=== PATIENT | female | born 1985 | race Caucasian/White ===

== ENCOUNTER 2016-05-13 09:51 | Emergency (ER) | payer OTHER ==
[~2016-05-13] VITALS: Ht 170.2 cm; Wt 49.5 kg
[2016-05-13 10:02] VITALS: BP 107/63; PULSE 89; RESP 14; O2SAT 100
--- NOTE | 2016-05-13 10:02 | ED.REPORT ---
HPI-Abd Pain F Under 40 Date of Service May 13, 2016 ED Provider: Dr. Brandon Chicas M.D. A healthy 30 year old female, and at 5.5 weeks, presents to the ED with vaginal bleeding onset this morning. She also reports lower abdominal pain, characterized as more similar to labor pain than menstrual cramping. Her last menstrual period started on 04/04/16. She denies vomiting or fever. The patient knows her Rh status to be negative. She has had similar symptoms with previous miscarriages. Nursing Notes Stated Complaint: LOWER ABDOMINAL PAIN Chief Complaint: Female Abdominal Pain Nursing Notes Reviewed: Yes Allergies: Coded Allergies: No Known Allergies (Unverified , 05/13/16) Scheduled Nitrofurantoin Monohyd/M-Cryst (MacroBid) 100 Mg Capsule 100 MG PO BID Scheduled PRN Hydrocodone-Acetaminophen 5-325 mg (Hydrocodone-Acetaminophen 5-325 mg) 1 Each Tablet 1 TABLET PO Q4H PRN PRN For Pain General Time Seen by MD: 10:02 Chief Complaint , 1st trimester, Vaginal bleeding Hx Obtained From: Patient Arrived By: Walk-in Sudden in Onset?: Yes Onset Occurred: 1 - 4 hours ago Symptom Duration: Since onset Progression since Onset: Gradually worsening Location: : Abdomen lower Quality: Painful Severity: Current: Moderate Severity: Maximum: Moderate Associated with: Denies: Fever, Vomiting Status: Last NL menst cycle (04/04/16), Positive - home urine HCG : 5 Para: 2 RH Status / Blood Type: Rh Negative Pertinent Negative: Relieved by nothing Context Related History: Reports: Current Recent Healthcare: No recent doctor visit Similar Sx Previous: Yes Past Medical History Past Medical History - 05/13/2016 Past Surgical History Dental surgery Smoking History Never Smoker Social History Other Social History: Lives with children Ambulatory Status Independent Review of Systems Constitutional: Denies: Fever Respiratory: Denies: Non-productive cough, Shortness of breath GI: Reports: Abdominal pain (Lower), Denies: Vomiting Female: Reports: Vaginal bleeding - abnl () Complete sys rev & neg: except as marked. Physical Exam Initial Vital Signs Vital Signs (First) Date Time Temp Pulse Resp B/P Pulse Ox O2 Delivery O2 Flow Rate FiO2 05/13/16 10:02 36.9 89 14 107/63 100 Room Air Initial VS: Reviewed Head / Eyes: Atraumatic, Normocephalic ENT: Conjunctiva normal, No scleral icterus Neck: Supple, Full range of motion Skin: Warm, Dry, No cyanosis Neurologic: Alert, Oriented, Nonfocal Psychiatric: Mood/affect normal, Behavior normal, Normal thought content General/Constitutional: Awake, Alert, No acute distress Respiratory / Chest: Breath sounds NL, Breath sounds = bilat, No respiratory distress Cardiovascular: Heart rate NL, Regular rhythm, Heart sounds NL Abdomen: Soft, Non-tender Back: Full range of motion Interpretation & Diagnostics Interpretation & Diagnostics: Rh negative per patient Lab Results Interpretation Result Diagram: 05/13/16 1015 05/13/16 1015 Test 05/13/16 10:15 05/13/16 10:38 White Blood Count 5.8th/mm3 (3.8-10.1) Red Blood Count 3.95mil/mm3 (3.90-5.20) Hemoglobin 12.1g/dL (12.0-15.6) Hematocrit 36.3% (35.0-46.0) Mean Corpuscular Volume 91.9fL (81-100) Mean Corpuscular Hemoglobin 30.6pg (27.0-35.0) Mean Corpuscular Hemoglobin Concent 33.3% (32.0-37.0) Red Cell Distribution Width 12.5% (12.3-15.4) Platelet Count 210bil/L (150-400) Neutrophils (%) (Auto) 71.1% (40-74) Lymphocytes (%) (Auto) 19.7% (14-46) Monocytes (%) (Auto) 7.3% (4-12) Eosinophils (%) (Auto) 1.4% (0-5) Basophils (%) (Auto) 0.3% (0-3) Sodium Level 142mEq/L (134-144) Potassium Level 3.8mEq/L (3.5-5.2) Chloride Level 105mEq/L (97-108) Carbon Dioxide Level 24mmol/L (18-29) Blood Urea Nitrogen 12mg/dL (6-20) Creatinine 0.58mg/dL (0.57-1.00) Estimat Glomerular Filtration Rate 173mL/min (>59) Glucose Level 75mg/dL (60-99) Calcium Level 8.7mg/dL (8.5-10.1) Total Bilirubin 0.3mg/dL (0.0-1.2) Direct Bilirubin 0.2mg/dL (0.0-0.3) Aspartate Amino Transf (AST/SGOT) 16U/L (0-50) Alanine Aminotransferase (ALT/SGPT) 12U/L (0-32) Alkaline Phosphatase 53U/L (25-150) Total Protein 6.9g/dL (6.4-8.4) Albumin 4.5g/dL (3.4-5.0) HCG Beta Subunit 1699mIU/mL Urine Color Straw (YELLOW) Urine Appearance Hazy (CLEAR,HAZY) Urine pH 6.0 (5.0-8.0) Urine Specific [place] 1.025 (1.003-1.035) Urine Protein Negativemg/dL (NEG,TRACE) Urine Glucose (UA) Negativemg/dL (NEGATIVE) Urine Ketones Negativemg/dL (NEGATIVE) Urine Occult Blood Moderate (NEGATIVE) Urine Nitrite Negative (NEGATIVE) Urine Bilirubin Negative (NEGATIVE) Urine Urobilinogen Normalmg/dL (NORMAL) Urine Leukocyte Esterase Small (NEGATIVE) Urine RBC 0-2/hpf (0-2) Urine WBC 11-50/hpf (0-5) Urine Epithelial Cells Few/hpf (NONE-MOD) Urine Crystals None seen (NONE SEEN) Urine Bacteria Moderate/hpf (NONE-FEW) Urine Hyaline Casts None/lpf (NONE) Urine Granular Casts None seen (NONE SEEN) Urine Waxy Casts None seen (NONE SEEN) Urine Red Blood Cell Casts None seen (NONE SEEN) Urine White Blood Cell Casts None seen (NONE SEEN) Urine Mucus Present (None Seen) Urine Trichomonas None seen (NONE SEEN) Urine Yeast None (NONE SEEN) Urinalysis Comment None Urine Culture Reflexed Indicated US Focused OB IMPRESSION: The saclike structure within the endometrial space may represent a "gestational sac" in this circumstance given the absence of a visualized yolk sac within. At the right adnexa there is a structure that may contain a central yolk sac, worrisome for ectopic . A 2.7 cm left ovarian cyst appears simple. Within the peritoneal space no current evidence of hemoperitoneum is found. Correlation with quantitative beta hCG is recommended to assist in determining whether a current intrauterine gestation should be seen. A high suspicion for ectopic of the right adnexa remains. It is not definitive, however, by this study. This information was conveyed to the ordering health care provider in the emergency room. Dictated by: Alexander Gramajo M.D. on 05/13/2016 at 14:31 Exam Performed by: Allied health pract Exam Interpreted by: Radiologist Re-Eval/Medical Decision Re-Evaluation/Progress #1: Time of Eval: 13:04 Patient Status: Condition improved Re-Evaluation/Progress Note: Discussed with patient US results and diagnosis. Re-Evaluation/Progress #2: Time of Eval: 13:30 Patient Status: Condition improved Re-Evaluation/Progress Note: Discussed lab results and plan for CHILD WATCH ATTENDANT consult. Her last meal was yesterday. Consultation #1: Referral / Consult Name: Saturnino Casillas MD Call Returned at: 13:26 Acrobatic Dancer: Will see patient, Agrees with eval, Agrees with plan Note: CHILD WATCH ATTENDANT: Will see patient at 17:00 Consultation #2: Referral / Consult Name: Saturnino Casillas MD Call Returned at: 17:42 Acrobatic Dancer: Will see patient, Agrees with eval, Agrees with plan Note: CHILD WATCH ATTENDANT: Dr. Casillas saw the patient, decided on plan for methotrexate and subsequent discharge. Patient agrees with plan for care and all questions were addressed. Dr. Casillas has arranged for outpatient follow-up for the patient and his spent a lengthy amount of time at the bedside with the patient. See his documentation. Counseled Regarding: Diagnosis, Lab results, Need for follow-up, When/why to return to ED Discharge & Departure Primary Impression: Ectopic Additional Impression: UTI (urinary tract infection) Urinary tract infection type: acute cystitis Hematuria presence: without hematuria Qualified Code: N30.00 - Acute cystitis without hematuria Disposition: Home Discharge Condition All VS Reviewed: Yes Condition: Stable Patient Instructions: Ectopic (ED), Methotrexate (Injection), Urinary Tract Infection in Women (ED) Additional Instructions: Follow-up with Dr. Casillas in the clinic on Monday. Take Macrobid twice daily for a week to treat the bladder infection you have. Return to the emergency department for increasing pain, uncontrolled bleeding, fainting or fever. Acetaminophen as needed for pain. Take hydrocodone/APAP as needed for severe pain. Referrals: Saturnino Casillas MD Scribe Attestation Portions of this note were transcribed by Rissa Viera. I, Dr. Chicas, personally performed the history, physical exam, and medical decision-making; I reviewed and confirmed the accuracy of the information in the transcribed note. Signed by: Iker Lomeli, 05/13/2016, 17:50 copies to: Saturnino Casillas MD, Kirk H MD May 13, 2016 10:02 RISSA VIERA May 13, 2016 10:20
[2016-05-13 10:34] LABS: BASOPHILS % (AUTO) 0.3 % (0-3); EOSINOPHILS % (AUTO) 1.4 % (0-5); MONOCYTES % (AUTO) 7.3 % (4-12); Mean Corpuscular Hemoglobin 30.6 pg (27.0-35.0); Mean Corpuscular Volume 91.9 fL (81-100); NEUTROPHILS % (AUTO) 71.1 % (40-74); Platelet Count 210 bil/L (150-400)
[2016-05-13 11:30] LABS: APPEARANCE,URINE HAZY (CLEAR,HAZY); COLOR,URINE STRAW (YELLOW); OCCULT BLOOD,URINE MODERATE (NEGATIVE); UROBILINOGEN,URINE NORMAL (NORMAL)
--- NOTE | 2016-05-13 14:33 | DRSVH ---
PROCEDURE: US OB<14 WKS+OB TRANSVAG INDICATIONS: cramping bleeding OUTSIDE/PRIOR DATING DATA: Last menstrual period (LMP): Not available. LMP-based estimated date of delivery (MONIQUE): Not available. First dating scan (date and location): This study, 05/13/16. Estimated date of delivery (MONIQUE) from first dating scan: 01/12/17+ or minus one week, assuming viable gestation is present. TECHNIQUE: Real-time scanning was performed of the fetus and maternal pelvic organs, with image documentation. Endovaginal scanning was also performed to better visualize the fetus and maternal ovaries. COMPARISON: None. FINDINGS: Embryo: A pole is not seen but there is a sac like structure within the endometrial space with a mean sac diameter of 4 mm, which correlates with a gestational age of 5 weeks 1 day, plus or -7 day s, assuming this represents a viable gestation. Measurement variability in dating: +/- 4 weeks by LMP, +/- 7 days by mean sac diameter (use before 6 weeks gestation if crown-rump length not able to be measured), +/- 5 days by crown-rump length (6-12 weeks gestation). Maternal organs: Ovaries are normal on the left where a cyst can be seen, measuring up to 2.7 cm. A t the right ovary, however, there is a hyperechoic structure with a central cystic component with pos sible internal yolk sac within the, but without a visualized pole. Limited images through the kidneys demonstrate no hydronephrosis. IMPRESSION: The saclike structure within the endometrial space may represent a "gestational sac" in t his circumstance given the absence of a visualized yolk sac within. At the right adnexa there is a s tructure that may contain a central yolk sac, worrisome for ectopic . A 2.7 cm left ovarian cyst appears simple. Within the peritoneal space no current evidence of hemoperitoneum is found. Correlation with quantitative beta hCG is recommended to assist in determining whether a current intr auterine gestation should be seen. A high suspicion for ectopic of the right adnexa remain s. It is not definitive, however, by this study. This information was conveyed to the ordering health care provider in the emergency room. Dictated by: Alexander Gramajo M.D. on 05/13/2016 at 14:31 Approved by: Alexander Gramajo M.D. on 05/13/2016 at 14:31
[2016-05-13] MEDS ORDERED: HYDR-4003 PO (17:33)
[2016-05-13] MEDS ORDERED: NITR100 PO (17:33)
[2016-05-13 17:43] LABS: Bilirubin, Direct 0.2 mg/dL (0.0-0.3)
[2016-05-13] MEDS ORDERED: METHOTREXATE 25 MG/ML IM ONE (18:15)
--- NOTE | 2016-05-13 18:24 | PCM.CONSUR ---
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, 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 lives in [place] Reason for Consultation ectopic Allergy Allergies: Coded Allergies: No Known Allergies (Unverified , 05/13/16) Medications Hypertension Medication: No Home Meds Incl Beta Blockers: No Hydrocodone-Acetaminophen 5-325 mg (Hydrocodone-Acetaminophen 5-325 mg) 1 Each Tablet 1 TABLET PO Q4H PRN PRN For Pain Prescribed by: PATRICK CHICAS MD Nitrofurantoin Monohyd/M-Cryst (MacroBid) 100 Mg Capsule 100 MG PO BID Prescribed by: PATRICK CHICAS MD Social History Hx Alcohol Use: No Hx Substance Use: No Hx Tobacco Use: No PMH Social History Hx Alcohol Use: No Smoking Status: Never Smoker Family History PMH Family Diagnosis: Other (nil) Objective Exam Lab & Micro Results Laboratory Tests Test 05/13/16 10:15 05/13/16 10:38 White Blood Count 5.8th/mm3 (3.8-10.1) Red Blood Count 3.95mil/mm3 (3.90-5.20) Hemoglobin 12.1g/dL (12.0-15.6) Hematocrit 36.3% (35.0-46.0) Mean Corpuscular Volume 91.9fL (81-100) Mean Corpuscular Hemoglobin 30.6pg (27.0-35.0) Mean Corpuscular Hemoglobin Concent 33.3% (32.0-37.0) Red Cell Distribution Width 12.5% (12.3-15.4) Platelet Count 210bil/L (150-400) Neutrophils (%) (Auto) 71.1% (40-74) Lymphocytes (%) (Auto) 19.7% (14-46) Monocytes (%) (Auto) 7.3% (4-12) Eosinophils (%) (Auto) 1.4% (0-5) Basophils (%) (Auto) 0.3% (0-3) Sodium Level 142mEq/L (134-144) Potassium Level 3.8mEq/L (3.5-5.2) Chloride Level 105mEq/L (97-108) Carbon Dioxide Level 24mmol/L (18-29) Blood Urea Nitrogen 12mg/dL (6-20) Creatinine 0.58mg/dL (0.57-1.00) Estimat Glomerular Filtration Rate 173mL/min (>59) Glucose Level 75mg/dL (60-99) Calcium Level 8.7mg/dL (8.5-10.1) Total Bilirubin 0.3mg/dL (0.0-1.2) Direct Bilirubin 0.2mg/dL (0.0-0.3) Aspartate Amino Transf (AST/SGOT) 16U/L (0-50) Alanine Aminotransferase (ALT/SGPT) 12U/L (0-32) Alkaline Phosphatase 53U/L (25-150) Total Protein 6.9g/dL (6.4-8.4) Albumin 4.5g/dL (3.4-5.0) HCG Beta Subunit 1699mIU/mL Urine Color Straw (YELLOW) Urine Appearance Hazy (CLEAR,HAZY) Urine pH 6.0 (5.0-8.0) Urine Specific [place] 1.025 (1.003-1.035) Urine Protein Negativemg/dL (NEG,TRACE) Urine Glucose (UA) Negativemg/dL (NEGATIVE) Urine Ketones Negativemg/dL (NEGATIVE) Urine Occult Blood Moderate (NEGATIVE) Urine Nitrite Negative (NEGATIVE) Urine Bilirubin Negative (NEGATIVE) Urine Urobilinogen Normalmg/dL (NORMAL) Urine Leukocyte Esterase Small (NEGATIVE) Urine RBC 0-2/hpf (0-2) Urine WBC 11-50/hpf (0-5) Urine Epithelial Cells Few/hpf (NONE-MOD) Urine Crystals None seen (NONE SEEN) Urine Bacteria Moderate/hpf (NONE-FEW) Urine Hyaline Casts None/lpf (NONE) Urine Granular Casts None seen (NONE SEEN) Urine Waxy Casts None seen (NONE SEEN) Urine Red Blood Cell Casts None seen (NONE SEEN) Urine White Blood Cell Casts None seen (NONE SEEN) Urine Mucus Present (None Seen) Urine Trichomonas None seen (NONE SEEN) Urine Yeast None (NONE SEEN) Urinalysis Comment None Urine Culture Reflexed Indicated Microbiology 05/13/16 Urine Culture, Received Pending Result Diagram: 05/13/16 1015 05/13/16 1015 Review of Systems: Constitutional: Negative, except as otherwise mentioned in the history above. Ophthalmologic: Negative, except as otherwise mentioned in the history above. Cardiovascular: Negative, except as otherwise mentioned in the history above. Respiratory: Negative, except as otherwise mentioned in the history above. Gastrointestinal: Negative, except as otherwise mentioned in the history above. Genitourinary: Negative, except as otherwise mentioned in the history above. Musculoskeletal: Negative, except as otherwise mentioned in the history above. Neurological: Negative, except as otherwise mentioned in the history above. Psychiatric: Negative, except as otherwise mentioned in the history above. Hematologic/Lymphatic: Negative, except as otherwise mentioned in the history above. Allergic/Immunologic: Negative, except as otherwise mentioned in the history above. H&P Surgical Exam Exam General: Alert, Oriented X3, Cooperative HEENT: Within normal limits & unremarkable Respiratory: Clear to Auscultation Abdomen: Normal bowel sounds, Soft, Other (minimal tenderness along R pelvis) Pelvic: Exceptions (deferred) Additional Information Laboratory Tests Test 05/13/16 10:38 Urine Color Straw Urine Appearance Hazy Urine pH 6.0 Urine Specific [place] 1.025 Urine Protein Negativemg/dL Urine Glucose (UA) Negativemg/dL Urine Ketones Negativemg/dL Urine Occult Blood Moderate Urine Nitrite Negative Urine Bilirubin Negative Urine Urobilinogen Normalmg/dL Urine Leukocyte Esterase Small Urine RBC 0-2/hpf Urine WBC 11-50/hpf Urine Epithelial Cells Few/hpf Urine Crystals None seen Urine Bacteria Moderate/hpf Urine Hyaline Casts None/lpf Urine Granular Casts None seen Urine Waxy Casts None seen Urine Red Blood Cell Casts None seen Urine White Blood Cell Casts None seen Urine Mucus Present Urine Trichomonas None seen Urine Yeast None Urinalysis Comment None Urine Culture Reflexed Indicated CBC Test 05/13/16 10:15 White Blood Count 5.8th/mm3 (3.8-10.1) Red Blood Count 3.95mil/mm3 (3.90-5.20) Hemoglobin 12.1g/dL (12.0-15.6) Hematocrit 36.3% (35.0-46.0) Mean Corpuscular Volume 91.9fL (81-100) Mean Corpuscular Hemoglobin 30.6pg (27.0-35.0) Mean Corpuscular Hemoglobin Concent 33.3% (32.0-37.0) Red Cell Distribution Width 12.5% (12.3-15.4) Platelet Count 210bil/L (150-400) Neutrophils (%) (Auto) 71.1% (40-74) Lymphocytes (%) (Auto) 19.7% (14-46) Monocytes (%) (Auto) 7.3% (4-12) Eosinophils (%) (Auto) 1.4% (0-5) Basophils (%) (Auto) 0.3% (0-3) CMP Test 05/13/16 10:15 Sodium Level 142mEq/L Potassium Level 3.8mEq/L Chloride Level 105mEq/L Carbon Dioxide Level 24mmol/L Blood Urea Nitrogen 12mg/dL Creatinine 0.58mg/dL Estimat Glomerular Filtration Rate 173mL/min Glucose Level 75mg/dL Calcium Level 8.7mg/dL Total Bilirubin 0.3mg/dL Direct Bilirubin 0.2mg/dL Aspartate Amino Transf (AST/SGOT) 16U/L Alanine Aminotransferase (ALT/SGPT) 12U/L Alkaline Phosphatase 53U/L Total Protein 6.9g/dL Albumin 4.5g/dL HCG Beta Subunit 1699mIU/mL PROCEDURE: US OB<14 WKS+OB TRANSVAG INDICATIONS: cramping bleeding OUTSIDE/PRIOR DATING DATA: Last menstrual period (LMP): Not available. LMP-based estimated date of delivery (MONIQUE): Not available. First dating scan (date and location): This study, 05/13/16. Estimated date of delivery (MONIQUE) from first dating scan: 01/12/17+ or minus one week, assuming viable gestation is present. TECHNIQUE: Real-time scanning was performed of the fetus and maternal pelvic organs, with image documentation. Endovaginal scanning was also performed to better visualize the fetus and maternal ovaries. COMPARISON: None. FINDINGS: Embryo: A pole is not seen but there is a sac like structure within the endometrial space with a mean sac diameter of 4 mm, which correlates with a gestational age of 5 weeks 1 day, plus or -7 days, assuming this represents a viable gestation. Measurement variability in dating: +/- 4 weeks by LMP, +/- 7 days by mean sac diameter (use before 6 weeks gestation if crown-rump length not able to be measured), +/- 5 days by crown-rump length (6-12 weeks gestation). Maternal organs: Ovaries are normal on the left where a cyst can be seen, measuring up to 2.7 cm. At the right ovary, however, there is a hyperechoic structure with a central cystic component with possible internal yolk sac within the, but without a visualized pole. Limited images through the kidneys demonstrate no hydronephrosis. IMPRESSION: The saclike structure within the endometrial space may represent a "gestational sac" in this circumstance given the absence of a visualized yolk sac within. At the right adnexa there is a structure that may contain a central yolk sac, worrisome for ectopic . A 2.7 cm left ovarian cyst appears simple. Within the peritoneal space no current evidence of hemoperitoneum is found. Correlation with quantitative beta hCG is recommended to assist in determining whether a current intrauterine gestation should be seen. A high suspicion for ectopic of the right adnexa remains. It is not definitive, however, by this study. Assessment & Plan Assessment 1. R tubal ectopic , no rupture, hemodynamically stable I spoke directly with radiologist, and with the quant Beta being 1699 and lack of intrauterine , this is an ectopic unless proven otherwise 2. likely UTI 3. RH negative (rhogam given) Pain Evaluation: Adequate Pain Control Plan: I discussed laparoscopic treatment vs conservative medical treatment with methotrexate. She wishes the latter. She is a good candidate for medical treatment as her Bhcg levels are <2000, no heartbeat seen, she is compliant and her pre-MTX labs are normal. Also her pelvic pain is currently mild (rated 2/10 by the patient). She understands the risks of medical treatment including failure of MTX to work and therefore requiring surgery, ruptured ectopic, hemorrhage, need to return to ER if acute symptoms present, and rarely . She understands she will need serial bloodwork and may require another dose of MTX on day 7 if the Bhcg levels do not drop appropriately. She was told to refrain from intercourse, strenuous activity, folic acid and alcohol while on treatment. I also told her to avoid NSAIDs in case of bleeding but she may take tylenol and use vicodon sparingly. She understands there is a risk of ectopic with a subsequent and would need to see a physician if she has a missed menses or suspects so an ectopic can be ruled out. She understood all these risks and instructions and agreed. For presumptive UTI, she will get Macrobid x 7d. We will f/u on culture results. f/u on Monday in the office to review the repeat Bhcg that day and repeat exam. I may collect GC/Chl that day as well. Time Spent: 90 minutes copies: Patrick Chicas MD; Saturnino Casillas MD, William Andre Z MD May 13, 2016 18:23
[2016-05-13 18:40] VITALS: BP 93/60; PULSE 72; RESP 16; O2SAT 100
== END 2016-05-13 18:41 | disposition home or self-care (01) ==
LOC: SED 09:51
DX: O00.90 Unspecified ectopic pregnancy without intrauterine pregnancy (principal); O23.91 Unspecified genitourinary tract infection in pregnancy, first trimester; N30.00 Acute cystitis without hematuria; R10.30 Lower abdominal pain, unspecified; Z3A.01 Less than 8 weeks gestation of pregnancy
CPT/HCPCS: 36415; 76801; 76817; 80048; 80076; 81000; 81025; 84702; 85025; 87086; 87088; 96372; 96374; 99285; J2790; J9260

== ENCOUNTER 2016-05-20 07:25 | Observation (INO) | payer OTHER ==
[~2016-05-20] VITALS: Ht 170.2 cm; Wt 51.4 kg
[2016-05-20] VITALS (18 sets, daily range): BP systolic 96–111; BP diastolic 33–61; PULSE 68–98; RESP 13–19; O2SAT 96–100
[~2016-05-20 07:25] MED LIST: HYDR-4003 PO; NITR100 PO
[2016-05-20 08:11] LABS: BASOPHILS % (AUTO) 0.4 % (0-3); EOSINOPHILS % (AUTO) 1.8 % (0-5); MONOCYTES % (AUTO) 7.5 % (4-12); Mean Corpuscular Hemoglobin 29.9 pg (27.0-35.0); NEUTROPHILS % (AUTO) 66.3 % (40-74); Platelet Count 201 bil/L (150-400)
[2016-05-20 08:30] LABS: INR 1.05 ratio
[2016-05-20] MEDS ORDERED: 0.9% Sodium Chloride 1,000 ML IV ONE (08:40)
--- NOTE | 2016-05-20 08:40 | ED.REPORT ---
HPI-Abd Pain F Under 40 Date of Service May 20, 2016 ED Provider: Chasity Cerda MD The patient is a 30 year old female who presents to the emergency department complaining of severe RLQ pain and vaginal bleeding. She was seen here 1 week ago and diagnosed with a right ectopic by ultrasound. She was advised to stay and have surgery but she opted for methotrexate. Over the first 24 hours she noticed vaginal cramping and nausea. By the next day she was feeling much better. She has noticed light vaginal spotting over the last week and she believes she started passing what appeared to be tissue. This morning while she was in the shower she had sudden onset RLQ pain and heavy vaginal bleeding. She states that she got out of the shower and made it to the bed and then passed out briefly. At this time her pain waxes and wanes, and she is still noticing some intermittent lightheadedness. Nursing Notes Stated Complaint: BLEEDING Chief Complaint: Female Abdominal Pain Nursing Notes Reviewed: Yes Allergies: Coded Allergies: No Known Allergies (Unverified , 05/20/16) Scheduled Nitrofurantoin Monohyd/M-Cryst (MacroBid) 100 Mg Capsule 100 MG PO BID Scheduled PRN ([tylenol]) 500 MG PO prn PRN PRN For Pain Hydrocodone-Acetaminophen 5-325 mg (Hydrocodone-Acetaminophen 5-325 mg) 1 Each Tablet 1 TABLET PO Q4H PRN PRN For Pain General Time Seen by MD: 08:36 Chief Complaint Abdominal pain Hx Obtained From: Patient Arrived By: Walk-in Sudden in Onset?: Yes Onset Occurred: 1 - 4 hours ago Symptom Duration: Since onset Progression since Onset: Constant Quality: Painful Radiation: : Does not radiate Severity: Current: Moderate Severity: Maximum: Severe Recent Healthcare: No recent hospitalization, Recent doctor visit, Previous diagnosis (ecoptic ), Prior workup Similar Sx Previous: No Past Medical History Past Medical History - 05/13/2016 Past Surgical History Dental surgery Family History Noncontributory Smoking History Never Smoker Social History Other Social History: Good social support, Lives with children Ambulatory Status Independent Review of Systems GI: Reports: Abdominal pain Female: Reports: Pelvic pain, Vaginal bleeding - abnl Complete sys rev & neg: except as marked. Neurologic: Reports: Change LOC, Lightheaded Physical Exam Initial Vital Signs Vital Signs (First) Date Time Temp Pulse Resp B/P Pulse Ox O2 Delivery O2 Flow Rate FiO2 05/20/16 07:30 36.5 68 18 103/33 100 Room Air Initial VS: Reviewed Head / Eyes: Atraumatic, Normocephalic, PERRL ENT: Mucous membranes moist, Conjunctiva normal, No scleral icterus Neck: Supple, Non-tender, Full range of motion Lymphatic: No lymphadenopathy Extremities: Vascular intact, Neuro intact, No swelling, No tenderness Skin: Warm, Dry, No cyanosis Neurologic: Alert, Oriented, Nonfocal Psychiatric: Mood/affect normal, Behavior normal, Normal thought content General/Constitutional: Awake, Alert, No acute distress, Well appearing Respiratory / Chest: Atraumatic, Breath sounds NL, Breath sounds = bilat, No respiratory distress, No rales, No rhonchi, No wheezing Cardiovascular: Heart rate NL, Regular rhythm, Heart sounds NL, No gallop, No murmurs, Peripheral circulation NL Abdomen: Soft, McBurney's non-tender, No guarding, No rebound, BS normoactive, No distention, No hernia, No palpable mass She has mild pelvic tenderness with moderate tenderness on the right. Back: Full range of motion, Painless range of motion, No midline vertebral tend Female Genitourinary: Exam deferred Interpretation & Diagnostics PROCEDURE: US PELVIC SONOGRAM + TRANSVAGINAL SONOGRAM IMPRESSION: 1. Mildly prominent complex endometrial stripe which may represent clot. No intrauterine is seen. 2. Right adnexal mass redemonstrated again suspicious for ectopic has slightly increased in size compared to prior examination and there is a trace amount of adjacent free fluid. 3. Simple left ovarian cyst. Dr. Cerda given results 1015 hrs. 05/20/2016. Dictated by: David Combs [facility] Interpreted: Ayesha Orantes MD on 05/20/2016 at 10:06 Lab Results Interpretation Result Diagram: 05/20/16 0900 05/20/16 0804 Test 05/20/16 08:04 05/20/16 08:09 05/20/16 09:00 05/20/16 09:30 White Blood Count 4.9th/mm3 (3.8-10.1) Red Blood Count 3.91mil/mm3 (3.90-5.20) Mean Corpuscular Volume 90.0fL (81-100) Mean Corpuscular Hemoglobin 29.9pg (27.0-35.0) Mean Corpuscular Hemoglobin Concent 33.2% (32.0-37.0) Red Cell Distribution Width 12.2% (12.3-15.4) Platelet Count 201bil/L (150-400) Neutrophils (%) (Auto) 66.3% (40-74) Lymphocytes (%) (Auto) 23.8% (14-46) Monocytes (%) (Auto) 7.5% (4-12) Eosinophils (%) (Auto) 1.8% (0-5) Basophils (%) (Auto) 0.4% (0-3) Prothrombin Time 11.3sec (8.1-12.5) Prothromb Time International Ratio 1.05ratio Sodium Level 139mEq/L (134-144) Potassium Level 3.6mEq/L (3.5-5.2) Chloride Level 104mEq/L (97-108) Carbon Dioxide Level 21mmol/L (18-29) Blood Urea Nitrogen 14mg/dL (6-20) Creatinine 0.62mg/dL (0.57-1.00) Estimat Glomerular Filtration Rate 160mL/min (>59) Glucose Level 85mg/dL (60-99) Calcium Level 8.9mg/dL (8.5-10.1) Total Bilirubin 0.3mg/dL (0.0-1.2) Aspartate Amino Transf (AST/SGOT) 23U/L (0-50) Alanine Aminotransferase (ALT/SGPT) 17U/L (0-32) Alkaline Phosphatase 54U/L (25-150) Total Protein 7.1g/dL (6.4-8.4) Albumin 4.3g/dL (3.4-5.0) Hold Arciniega Top Tube Received (Received) HCG Beta Subunit 4450mIU/mL Hemoglobin 10.4g/dL (12.0-15.6) Hematocrit 31.5% (35.0-46.0) Hold Urine Received (Received) Re-Eval/Medical Decision Med Decision/Clinical Course Med Decision/Clinical Course: extopic s/p methotrexate 1 week ago. Now significant bleeding and pain. Hemodynamically stable after volume resucitation following syncope at home. Reviewed with OB. To OR tonight for surgical intervention. Will need to expedite this surgery should she become hemodynamically unstable prior to anticipated surgery. Source of Hx: Old records Summary of Info: US OB<14 wks+OB TRANSVAG IMPRESSION: The saclike structure within the endometrial space may represent a "gestational sac" in this circumstance given the absence of a visualized yolk sac within. At the right adnexa there is a structure that may contain a central yolk sac, worrisome for ectopic . A 2.7 cm left ovarian cyst appears simple. Within the peritoneal space no current evidence of hemoperitoneum is found. Correlation with quantitative beta hCG is recommended to assist in determining whether a current intrauterine gestation should be seen. A high suspicion for ectopic of the right adnexa remains. It is not definitive, however, by this study. This information was conveyed to the ordering health care provider in the emergency room. Dictated by: Alexander Gramajo M.D. on 05/13/2016 at 14:31 Re-Evaluation/Progress : Time of Eval: 10:46 Re-Evaluation/Progress Note: Rechecked the patient. Discussed plan for surgery with the patient. She understands and agrees with plan. All questions were addressed. Consultation : Referral / Consult Name: Saturnino Casillas MD Requested Call at: 10:39 Call Returned at: 10:41 Senior Graduate Advisor: Agrees with eval, Agrees with plan, Requested OR Note: Spoke with the patient's OBGYN. He will see the patient around 5 today for surgery. She should remain NPO. Counseled Regarding: Diagnosis, Lab results, Need for admission Discharge & Departure Primary Impression: Ectopic Additional Impressions: Syncope Syncope type: unspecified Qualified Code: R55 - Syncope and collapse Anemia associated with acute blood loss Disposition: ADMITTED TO HOSPITAL Discharge Condition All VS Reviewed: Yes Condition: Stable Referrals: Saturnino Casillas MD Scrjuanito Attestation Portions of this note were transcribed by Elli Irene. I, Dr. Cerda personally performed the history, physical exam and medical decision-making; I reviewed and confirmed the accuracy of the information in the transcribed note. Signed by: Iker Perkins, 05/20/2016 and 1140. copies to: Saturnino Casillas MD, Shawna L MD May 20, 2016 08:40 Elli Irene May 20, 2016 08:43
--- NOTE | 2016-05-20 10:22 | DRSVH ---
PROCEDURE: US PELVIC SONOGRAM + TRANSVAGINAL SONOGRAM INDICATIONS: known ectopic, vaginal bleeding, severe abd pain TECHNIQUE: Real-time scanning was performed of the pelvic organs, with image documentation. Additional endovagi nal scanning was necessary due to incomplete visualization of the adnexal and endometrial structures by transabdominal scanning. COMPARISON: [facility], US, US OB<14 WKS+OB TRANSVAG, 05/13/2016, 12:00. FINDINGS: (orthogonal measurements) Uterus size: 9.90 cm, 5.78 cm, 6.89 cm Endometrium thickness: 1.32 cm Right ovary size: 2.92 cm, 1.14 cm, 3.09 cm Left ovary size: 3.10 cm, 3.73 cm, 3.77 cm Transabdominal scanning: Limited scanning through the kidneys shows no hydronephrosis. No pathologi c free abdominal or pelvic fluid. Endovaginal scanning: Uterus: Uterus is normal in size and appearance. Endometrium is within normal physiologic limits. Ovaries: Thick walled mass again seen within the right adnexa adjacent to the right ovary with a cent ral rounded sonolucency slightly increased in size from prior examination now measuring 2.7 x 2.0 cm compared to 1.3 x 0.9 cm on prior examination. No definite internal yolk sac or pole is seen. There is a trace amount of adjacent free fluid. Simple left ovarian cyst present measuring roughly 25 mm. IMPRESSION: 1. Mildly prominent complex endometrial stripe which may represent clot. No intrauterine i s seen. 2. Right adnexal mass redemonstrated again suspicious for ectopic has slightly increased in size compared to prior examination and there is a trace amount of adjacent free fluid. 3. Simple left ovarian cyst. Dr. Cerda given results 1015 hrs. 05/20/2016. Dictated by: David Combs RRA Interpreted: Ayesha Orantes MD on 05/20/2016 at 10:06 Transcribed by: SINA on 05/20/2016 at 10:21 Approved by: Ayesha Orantes MD, PhD on 05/20/2016 at 16:44
[2016-05-20] MEDS ORDERED: HYDROmorphone 0.5 mg/0.5 mL iSecure Syringe IVPUSH PRN ×2 (11:00→11:35)
[2016-05-20] MEDS ORDERED: fentaNYL-PF 50 mCg/mL 2 mL Inj ONE (11:29)
[2016-05-20] MEDS ORDERED: Ketamine 10 mg/mL 20 mL Inj ONE (11:29)
[2016-05-20] MEDS: 0.9% Sodium Chloride 1,000 ML IV SCH ×4 (11:30→18:13)
[2016-05-20] MEDS ORDERED: Ondansetron 2 mg/mL 2 mL Inj IVPUSH PRN ×3 (11:35→20:50)
[2016-05-20] MEDS ORDERED: tylenol PO (12:09)
[2016-05-20] MEDS ORDERED: Lactated Ringer's 1,000 ML IV ONE ×2 (15:30→21:23)
--- NOTE | 2016-05-20 17:16 | PCM.ANEP2 ---
Post Anesthesia Evaluation ASA/CMS Post Anesthesia VS in Patient's Normal Range?: Yes Resp Stable; Airway Patent?: Yes CV Function & Hydration Stable: Yes Mental Status Recovered?: Yes Pain control Satisfactory?: Yes N/V Control Satisfactory?: Yes Rory Washburn MD May 20, 2016 17:16
--- NOTE | 2016-05-20 17:16 | PCM.ANEP1 ---
Post Anesthesia Phase 1 PACU Phase 1 Assessment Vital Signs Vital Signs Date Time Temp Pulse Resp B/P Pulse Ox O2 Delivery O2 Flow Rate FiO2 05/20/16 11:59 36.5 72 18 104/57 100 Room Air 05/20/16 11:51 36.5 72 18 104/57 100 Room Air 05/20/16 11:22 36.5 80 16 100/52 96 Room Air 05/20/16 10:02 82 16 111/48 98 Room Air 05/20/16 09:19 87 15 101/44 98 Anesthetic Administered: GA Level of Alertness: Awake, talking Pain: No Pain Scale Score: 5 Nausea or Vomiting: No Oxygen Delivery: Room Air Rory Washburn MD May 20, 2016 17:16
--- NOTE | 2016-05-20 17:17 | PCM.HPANE ---
Patient Data Surgeon Admitting Provider: Attending Provider:Saturnino Casillas MD Primary Care Physician:Clinic,[facility] Other Provider: Reason for Visit Bleeding Ht/WT & BMI Height (Feet): 5 Height (Inches): 7.00 Weight (Kilograms): 49.550 Body Mass Index 17.00 Allergies Coded Allergies: No Known Allergies (Unverified , 05/20/16) Past Anesthesia History Anesthesia History: Denies:: Abnormal Airway, Difficult Intubation Diabetes History Hx Diabetes?: No Medications Hypertension Medication: No Home Meds Incl Beta Jose: No Active Scripts Hydrocodone-Acetaminophen 5-325 mg 1 Each Tablet1 Tablet PO Q4H PRN For Pain # 10 TABLET Ref 0 Prov:Brandon Chicas MD 05/13/16 Nitrofurantoin Monohyd/M-Cryst (MacroBid)100 Mg [id number] Mg PO BID #14 CAPSULE Ref 0 Prov:Brandon Chicas MD 05/13/16 Reported Medications [tylenol] No Conflict [id number] Mg PO prn PRN For Pain 05/20/16 History History of ENT Problems?: No Hx of Heart Problems?: No Cardiovascular History: Denies:: Congestive Heart Failure Hypertension Hx of Respiratory Problem?: No Respiratory History: Denies:: Tuberculosis Hx Neurologic Problems?: No Hx of GI Problems?: No Hx of Problems?: No HX of Peritoneal Dialysis: No Female Hx: Positive for:: Currently (ectopic) Hx Musculoskeletal Problems?: No Hx of Psycho/Social Problems?: No Hx Surgeries?: Yes ([place] teeth) Hx Diabetes: No Hx Alcohol Use: NoHx Substance Use: No Smoking Status: Never Smoker Stop/Bang Treated for Sleep Apnea?: No Do You Have a CPAP Machine?: No Risk Assessment Category Category 1A: Patient has history of documented sleep apnea, and HAS NOT received any narcotic, sedative or anesthesia administration during this stay. Category 1B: Patient has history of documented sleep apnea, and HAS received any narcotic , sedative or anesthesia administration during this stay Category 2: Patient has SUSPECTED Obstructive Sleep Apnea, and HAS received any narcotic , sedative or anesthesia administration during this stay. Category 3: Patient has SUSPECTED Obstructive Sleep Apnea and HAS NOT received narcotic, sedative or anesthesia administration during this stay. Category 4: Outpatient in Procedural Areas with known sleep apnea or who screen positive for High Risk via the STOP/BANG questionnaire. Exam Exam Vital Signs Vital Signs Date Time Temp Pulse Resp B/P Pulse Ox O2 Delivery O2 Flow Rate FiO2 05/20/16 11:59 36.5 72 18 104/57 100 Room Air 05/20/16 11:51 36.5 72 18 104/57 100 Room Air 05/20/16 11:22 36.5 80 16 100/52 96 Room Air 05/20/16 10:02 82 16 111/48 98 Room Air 05/20/16 09:19 87 15 101/44 98 General Appearance: Alert, Oriented X3, Cooperative, No Acute Distress HEENT/AIRWAY: MP 2 Lungs: Clear to Auscultation, Normal Air Movement Heart: Exam Unremarkable, Regular Rate/Rhythm, No Murmurs/Rubs/Gallops Meds/Labs/Diagnostics Admission Meds Current Medications Sodium Chloride 1,000 ml @ 0 mls/hr Q0M ONCE IV Last administered on 08:20; Start 05/20/16 at 08:40; Stop 05/20/16 at 08:42; Status DC Sodium Chloride 1,000 ml @ 150 mls/hr Q6H40M IV Last administered on 11:30; Start 05/20/16 at 11:00 Lactated Ringer's (Lr) 1,000 ml @ ud STK-MED ONCE IV Last administered on 05/20 15:30; Start 05/20/16 at 15:30; Stop 05/20/16 at 16:10; Status DC Labs Test 05/20/16 08:04 05/20/16 08:09 05/20/16 09:30 05/20/16 14:19 White Blood Count 4.9th/mm3 (3.8-10.1) Red Blood Count 3.91mil/mm3 (3.90-5.20) Mean Corpuscular Volume 90.0fL (81-100) Mean Corpuscular Hemoglobin 29.9pg (27.0-35.0) Mean Corpuscular Hemoglobin Concent 33.2% (32.0-37.0) Red Cell Distribution Width 12.2% (12.3-15.4) Platelet Count 201bil/L (150-400) Neutrophils (%) (Auto) 66.3% (40-74) Lymphocytes (%) (Auto) 23.8% (14-46) Monocytes (%) (Auto) 7.5% (4-12) Eosinophils (%) (Auto) 1.8% (0-5) Basophils (%) (Auto) 0.4% (0-3) Prothrombin Time 11.3sec (8.1-12.5) Prothromb Time International Ratio 1.05ratio Sodium Level 139mEq/L (134-144) Potassium Level 3.6mEq/L (3.5-5.2) Chloride Level 104mEq/L (97-108) Carbon Dioxide Level 21mmol/L (18-29) Blood Urea Nitrogen 14mg/dL (6-20) Creatinine 0.62mg/dL (0.57-1.00) Estimat Glomerular Filtration Rate 160mL/min (>59) Glucose Level 85mg/dL (60-99) Calcium Level 8.9mg/dL (8.5-10.1) Total Bilirubin 0.3mg/dL (0.0-1.2) Aspartate Amino Transf (AST/SGOT) 23U/L (0-50) Alanine Aminotransferase (ALT/SGPT) 17U/L (0-32) Alkaline Phosphatase 54U/L (25-150) Total Protein 7.1g/dL (6.4-8.4) Albumin 4.3g/dL (3.4-5.0) Hold Arciniega Top Tube Received (Received) HCG Beta Subunit 4450mIU/mL Hold Urine Received (Received) Hemoglobin 10.7g/dL (12.0-15.6) Hematocrit 32.5% (35.0-46.0) Plan Impression Patient chart reviewed, patient interviewed and anesthestic plan with risks, benefits, and alternatives discussed, and informed consent obtained. NPO Status: ice until 1pm ASA Physical Status: ASA1 Plus Emergency Anesthetic Plan: GA Bene/Risks/Altern/Consents: Yes HP Complete Prior to Induction: Yes Bhavin Delgadillo MD May 20, 2016 17:16
--- NOTE | 2016-05-20 18:27 | PCM.HPSURG ---
Subjective Date of Service: May 20, 2016 Referring Provider: Admitting Physician: [facility] Attending Physician: Saturnino Casillas MD Chief Complaint ECTOPIC , vaginal bleeding and pelvic major History of Present Illness known ectopic on R tube received 1 dose methotrexate in the ER 7 days ago presents to ER this am with heavy vaginal bleeding and pelvic pain syncopal episode this am x 1 She received IV fluid hydration in the ER Currently stable as of 6pm, and vaginal bleeding stopped Allergy Allergies: Coded Allergies: No Known Allergies (Unverified , 05/20/16) Social History Hx Alcohol Use: No Hx Substance Use: No Hx Tobacco Use: No PMH HEENT History History of ENT Problems?: No HEENT History: Denies:: Abnormal Airway Difficult Intubation Cardiovascular History History of Heart Problems?: No Cardiovascular History: Denies:: Congestive Heart Failure Hypertension Respiratory History of Respiratory Problem: No Respiratory History: Denies:: Tuberculosis Neurological History Hx Neurologic Problems?: No Gastrointestinal History HX of GI Problems?: No Genitourinary History Hx of Gu Problems?: No Female/Male History Reproductive History Female: Positive for: Currently ? (ectopic) Musculoskeletal History Hx Musculoskeletal Problems?: No Psycho Social History Hx of Psycho/Social Problems?: No Other History Diabetes: No Social History Hx Alcohol Use: NoHx Substance Use: NoHx Tobacco Use: No Smoking Status: Never Smoker H&P Surgical Exam Exam General: Alert, Oriented X3, Cooperative Lungs: Clear to Auscultation, Normal Air Movement Heart: Exam Unremarkable, Regular Rate/Rhythm, No Murmurs/Rubs/Gallops Abdomen: Soft, Appropriately tender, Normoactive bowel tones Catheters: None Diagnostics: Laboratory Tests 72 Hours Test 05/20/16 08:04 05/20/16 08:09 05/20/16 09:00 05/20/16 09:30 White Blood Count 4.9th/mm3 (3.8-10.1) Red Blood Count 3.91mil/mm3 (3.90-5.20) Hemoglobin 11.7g/dL (12.0-15.6) 10.4g/dL (12.0-15.6) Hematocrit 35.2% (35.0-46.0) 31.5% (35.0-46.0) Mean Corpuscular Volume 90.0fL (81-100) Mean Corpuscular Hemoglobin 29.9pg (27.0-35.0) Mean Corpuscular Hemoglobin Concent 33.2% (32.0-37.0) Red Cell Distribution Width 12.2% (12.3-15.4) Platelet Count 201bil/L (150-400) Neutrophils (%) (Auto) 66.3% (40-74) Lymphocytes (%) (Auto) 23.8% (14-46) Monocytes (%) (Auto) 7.5% (4-12) Eosinophils (%) (Auto) 1.8% (0-5) Basophils (%) (Auto) 0.4% (0-3) Prothrombin Time 11.3sec (8.1-12.5) Prothromb Time International Ratio 1.05ratio Sodium Level 139mEq/L (134-144) Potassium Level 3.6mEq/L (3.5-5.2) Chloride Level 104mEq/L (97-108) Carbon Dioxide Level 21mmol/L (18-29) Blood Urea Nitrogen 14mg/dL (6-20) Creatinine 0.62mg/dL (0.57-1.00) Estimat Glomerular Filtration Rate 160mL/min (>59) Glucose Level 85mg/dL (60-99) Calcium Level 8.9mg/dL (8.5-10.1) Total Bilirubin 0.3mg/dL (0.0-1.2) Aspartate Amino Transf (AST/SGOT) 23U/L (0-50) Alanine Aminotransferase (ALT/SGPT) 17U/L (0-32) Alkaline Phosphatase 54U/L (25-150) Total Protein 7.1g/dL (6.4-8.4) Albumin 4.3g/dL (3.4-5.0) Hold Arciniega Top Tube Received (Received) HCG Beta Subunit 4450mIU/mL Hold Urine Received (Received) Test 05/20/16 14:19 Hemoglobin 10.7g/dL (12.0-15.6) Hematocrit 32.5% (35.0-46.0) Additional Information: Pelvic ultrasound this morning revealed: Ovaries: Thick walled mass again seen within the right adnexa adjacent to the right ovary with a central rounded sonolucency slightly increased in size from prior examination now measuring 2.7 x 2.0 cm compared to 1.3 x 0.9 cm on prior examination. No definite internal yolk sac or pole is seen. There is a trace amount of adjacent free fluid. Simple left ovarian cyst present measuring roughly 25 mm. IMPRESSION: 1. Mildly prominent complex endometrial stripe which may represent clot. No intrauterine is seen. 2. Right adnexal mass redemonstrated again suspicious for ectopic has slightly increased in size compared to prior examination and there is a trace amount of adjacent free fluid. 3. Simple left ovarian cyst. Assessment & Plan Assessment 1. R ectopic , possible rupture Plan: I consented her to a laparoscopic linear salpingostomy, with possible salpingectomy, salpingoophorectomy, possible mini-laparotomy, possible dilation and curettage. Risks include: bleeding, need for transfusion or iron, injury to other organs ( bowel, bladder, ureter), infection (cellulitis, pelvic infection, endometritis) , incisional hernia. She agreed and signed the consent form. She understands the risk of recurrent ectopic in the future, requiring medical attention to rule out ectopic if she suspects . It is possible to have a normal with a normal remaining tube on the contralateral side. 2U blood in bloodbank held She received RhoGam last week in the ER. Time Spent: 60 min spent copies: Saturnino Casillas MD, William Andre Z MD May 20, 2016 18:27
[2016-05-20] MEDS ORDERED: CeFAZolin Inj 2 GM in IV Premix 1 EACH IV SCH (18:30)
[2016-05-20] MEDS ORDERED: Bupivacaine 0.5%/EPI 50 mL Inj INFILTRATE ONE (18:43)
[2016-05-20] MEDS ORDERED: Vasopressin 20 Unit/mL Inj IM ONE (18:44)
[2016-05-20] MEDS ORDERED: Lactated Ringer's 1,000 ML IV SCH (19:32)
[2016-05-20] MEDS ORDERED: Lactated Ringer's 500 ML IV PRN (19:32)
[2016-05-20] MEDS ORDERED: MetoCLOpramide 5 mg/mL 2 mL Inj IVPUSH PRN ×2 (19:35→20:50)
[2016-05-20] MEDS ORDERED: Dexamethasone 4 mg/mL Inj IVPUSH PRN (19:35)
[2016-05-20] MEDS ORDERED: Phenylephrine 10,000 mCg/mL Inj IVPUSH PRN (19:35)
[2016-05-20] MEDS ORDERED: EPHEDrine Sulfate 50 mg/mL Inj IVPUSH PRN (19:35)
[2016-05-20] MEDS: Lactated Ringer's 1,000 ML IV SCH (20:46)
[2016-05-20] MEDS ORDERED: diphenhydrAMINE 25 mg Capsule PO PRN (20:50)
[2016-05-20] MEDS ORDERED: Acetaminophen IV 1,000 MG in IV Premix 1 EACH IV ONE (20:50)
[2016-05-20] MEDS: fentaNYL-PF 50 mCg/mL 2 mL Inj IVPUSH PRN ×4 (20:56→21:22)
[2016-05-20] MEDS: HYDROmorphone 1 mg/mL Inj IVPUSH PRN ×3 (21:03→21:23)
--- NOTE | 2016-05-20 22:04 | NUR ---
ADMIT Pt arrived on floor at 2145 via gurney and transferred using slide board. Pt in 10/01 pain, drowsy but talking. 2 IV sites patent, LR running at 125 ml/hr. Family at bedside. Continuing care.
[2016-05-20] MEDS ORDERED: NAPR220C11 PO (22:33)
[2016-05-20] MEDS: HYDROcodone-APAP 5-325 mg Tablet PO PRN (23:32)
--- NOTE | 2016-05-21 00:13 | PCM.SURGOP ---
Surgical Operative Report Date of Service: May 20, 2016 Pre Operative Diagnosis R ectopic Post Operative Diagnosis Same pelvic endometriosis simple L ovarian cyst Procedure: Laparoscopic right linear salpingostomy Surgeon and Aircraft Fueler: Surgeon: Saturnino Casillas MD Assistants: None Indication for Procedure known ectopic on R tube received 1 dose methotrexate in the ER 7 days ago presents to ER this am with heavy vaginal bleeding and pelvic pain syncopal episode this am x 1 She received IV fluid hydration in the ER Pelvic ultrasound reveals: Thick walled mass again seen within the right adnexa adjacent to the right ovary with a central rounded sonolucency slightly increased in size from prior examination now measuring 2.7 x 2.0 cm compared to 1.3 x 0.9 cm on prior examination. No definite internal yolk sac or pole is seen. There is a trace amount of adjacent free fluid. Simple left ovarian cyst present measuring roughly 25 mm. I consented her to a laparoscopic linear salpingostomy, with possible salpingectomy, salpingoophorectomy, possible mini-laparotomy, possible dilation and curettage. Risks include: bleeding, need for transfusion or iron, injury to other organs ( bowel, bladder, ureter), infection (cellulitis, pelvic infection, endometritis) , incisional hernia. She agreed and signed the consent form. She understands the risk of recurrent ectopic in the future, requiring medical attention to rule out ectopic if she suspects . It is possible to have a normal with a normal remaining tube on the contralateral side. Findings: right ampullary ectopic of tube Procedure Details The patient was brought to the OR and was placed under general anesthesia. She received a dose of IV ancef 1 gram. She was prepped and draped in the usual fashion with legs in Yellow-Fin stirrups. 1. laparoscopic right linear salpingostomy. A 16F indwelling ascencio catheter inserted into the bladder. A small acorn uterine manipulator was inserted into the uterine cavity, held by single-toothed tenaculum attached to the anterior lip of the cervix. Next, marcaine with epinephrine was infiltrated along the infraumbilical area. A horizontal 10mm incision was made along the skin under the umbilicus. Using an open laparoscopy technique, the abdominal wall layers were entered successfully with sharp dissection. The angles of the fascia were secured with 0-vicryl suture. The peritoneum was tented with hemostats and entered sharply. The infraumbilical port was inserted into the abdominal cavity , confirmed with direct laparoscopic vision. High flow was initiated (then switched to medium-flow after adequate insufflation) and the abdomen was filled with 3.5 L of gas. The bowels directly below the insertion site were examined and no insertion injuries were noted. In addition, there were no anterior abdominal wall adhesions noted. An additional two 5mm ports were inserted inferiorly: a 5 mm port was inserted into a suprapubic incision under direct vision via a 5 mm trocar. A second 5-mm port were inserted under direct vision in the RLQ of the abdomen, avoiding the abdominal wall vessels via transillumination. The pelvic cavity was examined. A mild amount of free blood (approx 100 ml) was noted along the uterovesical fold and cul-de-sac. The blood was irrigated to allow better visualization of the pelvic contents. The L ovary contained a small simple-appearing cyst. The R ovary was normal in size. The R tube contained a non-ruptured 2 cm ampulary ectopic . There was no evidence of ovarian torsion. The left tube was normal. The cul- de-sac was noted to be scarred with endometriosis, especially along the uterosacral ligaments. Seven ml of dilute vasopressin (10 a U in 100 ml NS) was injected into the antimesenteric portion of the ampula with a 22G spinal needle inserted through the skin. Using a "L-shaped" cautery, a linear incision was made into the antimesenteric portion of the ampula. Using hydrodissection with the installation tech , tissue consistent with an ectopic was removed and sent to pathology , along with the associated clots. Cautery was used to gently cauterize the oozing exposed ends of the linear incision. In addition, an additional 5 ml of dilute vasopressin was injected into the R tube. Adequate hemostasis of the tube was noted. The pelvis was irrigated. Adequate hemostasis was noted which was maintained as gas was released. The bilateral adnexa and port sites were hemostatic as the gas was released. The infraumbilical and suprapubic incisions were reapproximated: the fascia was reapproximated using 0 vicryl suture in a continuous fashion. The incision was irrigated. The skin was reapproximated using 4-0 vicryl in a subcuticular fashion. The RLQ skin incisions were reapproximated using 4-0 vicryl in a subcuticular fashion. Mastisol solution, Steri-strips and bandages were applied to the incisions. The uterine manipulator was removed. The cervix was hemostatic. The EBL was minimal. She was taken to the recovery room in stable condition. All sponges and instruments were accounted for. Complications There were no periprocedural complications identified. Surgical Specimen Removed: Yes Specimen sent to Pathology: Yes Surgical Specimen description: products of conception/ectopic Anesthetic Plan: GA Grafts, Implants: None Output, Estimated Blood Loss: 5 (ml) Blood Administration during francisco: No Drains: None Catheters: None Post Operative Plan overnight observation in bed serial repeat [facility] until zero copies to: Saturnino Casillas MD, William Andre Z MD May 21, 2016 00:13
[2016-05-21] MEDS: HYDROcodone-APAP 5-325 mg Tablet PO PRN ×5 (00:26→17:20)
[2016-05-21 01:01] VITALS: BP 96/56; PULSE 81; RESP 14; O2SAT 100
[2016-05-21 03:20] VITALS: BP 99/59; PULSE 80; RESP 16; O2SAT 100
[2016-05-21] MEDS: Lactated Ringer's 1,000 ML IV SCH (04:17)
[2016-05-21 07:17] LABS: BASOPHILS % (AUTO) 0 % (0-3); EOSINOPHILS % (AUTO) 0 % (0-5); MONOCYTES % (AUTO) 2.3 % (4-12); Mean Corpuscular Hemoglobin 30.2 pg (27.0-35.0); Mean Corpuscular Volume 92.1 fL (81-100); NEUTROPHILS % (AUTO) 94.2 % (40-74); Platelet Count 126 bil/L (150-400)
[2016-05-21 08:00] VITALS: BP 96/61; PULSE 70; RESP 16; O2SAT 100
[2016-05-21] MEDS ORDERED: Senna-Docusate 8.6-50 mg Tablet PO SCH (08:30)
[2016-05-21 09:00] VITALS: BP 96/66; PULSE 70; RESP 16; O2SAT 100
--- NOTE | 2016-05-21 11:25 | NUR ---
Social Work-screening: data:EMR Reviewed. Pt is a 30 y/o female who was admitted for bleeding per H&P. Pt's insurance is [place] and PCP is [facility]. EMR Reviewed. Pt resides at home with her where she remains independent with ADLS. Pt had surgery yesterday and has been up independent in her room. No anticipated discharge needs. SW will continue to follow if needs arise. Assessment:Pt who is independent at baseline. Plan:Pt to discharge home when medically stable via POV. No anticipated discharge needs. SW will continue to follow if needs arise. JONATHAN Ribeiro
--- NOTE | 2016-05-21 14:01 | PCM.PNSURG ---
Subjective Date of Service: May 21, 2016 Date of Service: May 21, 2016 Visit Information: Reason for Visit Bleeding Surgery/Surgery Date Post-Op Day # 1 Subjective: AVSS ambulatory OR explained No sx of endometriosis in the past pain controlled well JAIRO Postop General: No Complaints Gastrointestinal: Good Appetite Pain Management: PO Postop Activity: Ambulating Independently Objective Vital Sign- Last 8 Hours Date Time Temp Pulse Resp B/P Pulse Ox O2 Delivery O2 Flow Rate FiO2 05/21/16 08:00 36.6 70 16 96/61 100 Room Air Intake and Output- Last 8 Hour 05/21/16 Cumulative From/Thru 07:00 05/20/16 07:30 - 05/21/16 05:12 Intake Total 1923 ml 4423 ml Output Total 780 ml 855 ml Balance 1143 ml 3568 ml Intake Oral 943 ml 943 ml IV Total 980 ml 3480 ml Output Urine Total 775 ml 850 ml Estimated Blood Loss 5 ml 5 ml General: Alert Lungs: Clear to Auscultation Abdomen: Benign, Soft Catheters: None Result Diagram: 05/21/16 0641 05/20/16 0804 Assessment & Plan Impression iron deficiency anemia secondary to acute blood loss R ectopic treated surgically Problems: Plan repeat H&H if stable discharge home today f/u in 2 wk will need serial Bhcg until levels approach zero copies to: Saturnino Casillas MD, William Andre Z MD May 21, 2016 14:01
--- NOTE | 2016-05-21 14:04 | PCM.DIGYN ---
Surgical Discharge Instruction Dates of Hospitalization Date of Hospital Admission 05/20/15, outpatient observation in bed overnight Providers Admitting Physician: [facility] Attending Physician: Saturnino Casillas MD Diagnosis at Time of Discharge Diagnosis at time of discharge iron deficiency anemia secondary to acute blood loss R tubal ectopic Post-operative diagnosis Same pelvic endometriosis simple L ovarian cyst Problems: Diet Discharge Diet: No restrictions Activity Discharge Activity-General: Restrict lifting to no greater than (10 lbs for 4- 6 wk) Dressing and Incisional Care Dressing Care: Allow Steri Stripes to fall off Hygiene: May shower Follow Up Plan Follow-up appointment: Weeks (2) Call your provider for: Fever, Chills, Shortness of breath, Vomitting, Drainage at incision, Heavy vaginal bleeding, Wound redness, Increasing pain Saturnino Casillas MD May 21, 2016 14:04
[2016-05-21 15:43] VITALS: BP 88/56; PULSE 69; RESP 14; O2SAT 98
--- NOTE | 2016-05-24 14:10 | PATH ---
SURGICAL PATHOLOGY Attending Physician:Saturnino Casillas, CASE STATUS: Signed Out PATIENT NAME: Carol Amaya PID: [id number] : 1985 DATE COLLECTED:05/20/2016 00:00 SPECIMEN: Products of conception CLINICAL HISTORY: ECTOPIC 1) PRODUCTS OF CONCEPTION, ECTOPIC RIGHT FINAL DIAGNOSIS: Products of Conception, Ectopic Right: Blood containing fragments of fallopian tube and fragments of immature placental tissue with avascular chorionic villi. ICD10 O00.1 GROSS DESCRIPTION: The specimen is received in formalin, labeled with the patient's name, sublabeled as right ectopic contents, products of conception and consists of multiple fragments of red-brown friable spongy tissue (2.8 x 1.9 x 0.8 cm in aggregate). No parts are identified. 05/21/16 ICD-9 CODES: CPT CODES: 1: 63015 Electronically Signed Out Dillon Rasheed MD [facility] Pathology [facility] [address], [place] [address] Technical component performed at [facility], [facility] [address], [place], [address]
--- NOTE | 2016-06-02 00:43 | PCM.DC.SUR ---
Discharge Summary Date of Service: Jun 02, 2016 Date of Hospital Admission: May 20, 2016 at 21:49 Date of Operation(s): May 20, 2016 Date of Discharge: May 21, 2016 Diagnosis at Time of Discharge Ectopic Tubal Problems: Operation Laparoscopic linear salpingostomy Brief History and Physical: known ectopic on R tube received 1 dose methotrexate in the ER 7 days ago presents to ER this am with heavy vaginal bleeding and pelvic pain syncopal episode this am x 1 She received IV fluid hydration in the ER Currently stable as of 6pm, and vaginal bleeding stopped Allergy Allergies: Coded Allergies: No Known Allergies (Unverified , 05/20/16) Social History Hx Alcohol Use: No Hx Substance Use: No Hx Tobacco Use: No PMH Surgery PMH HEENT History History of ENT Problems?: No HEENT History: Denies:: Abnormal Airway Difficult Intubation Cardiovascular History History of Heart Problems?: No Cardiovascular History: Denies:: Congestive Heart Failure Hypertension Respiratory History of Respiratory Problem: No Respiratory History: Denies:: Tuberculosis Neurological History Hx Neurologic Problems?: No Gastrointestinal History HX of GI Problems?: No Genitourinary History Hx of Gu Problems?: No Female/Male History Reproductive History Female: Positive for: Currently ? (ectopic) Musculoskeletal History Hx Musculoskeletal Problems?: No Psycho Social History Hx of Psycho/Social Problems?: No Other History Diabetes: No Social History Hx Alcohol Use: NoHx Substance Use: NoHx Tobacco Use: No Smoking Status: Never Smoker Review of Systems Review of Systems H&P Surgical Exam H&P Surgical Exam Exam General: Alert, Oriented X3, Cooperative Lungs: Clear to Auscultation, Normal Air Movement Heart: Exam Unremarkable, Regular Rate/Rhythm, No Murmurs/Rubs/Gallops Abdomen: Soft, Appropriately tender, Normoactive bowel tones Catheters: None Diagnostics: Laboratory Tests 72 Hours Test 05/20/16 08:04 05/20/16 08:09 05/20/16 09:00 05/20/16 09:30 White Blood Count 4.9th/mm3 (3.8-10.1) Red Blood Count 3.91mil/mm3 (3.90-5.20) Hemoglobin 11.7g/dL (12.0-15.6) 10.4g/dL (12.0-15.6) Hematocrit 35.2% (35.0-46.0) 31.5% (35.0-46.0) Mean Corpuscular Volume 90.0fL (81-100) Mean Corpuscular Hemoglobin 29.9pg (27.0-35.0) Mean Corpuscular Hemoglobin Concent 33.2% (32.0-37.0) Red Cell Distribution Width 12.2% (12.3-15.4) Platelet Count 201bil/L (150-400) Neutrophils (%) (Auto) 66.3% (40-74) Lymphocytes (%) (Auto) 23.8% (14-46) Monocytes (%) (Auto) 7.5% (4-12) Eosinophils (%) (Auto) 1.8% (0-5) Basophils (%) (Auto) 0.4% (0-3) Prothrombin Time 11.3sec (8.1-12.5) Prothromb Time International Ratio 1.05ratio Sodium Level 139mEq/L (134-144) Potassium Level 3.6mEq/L (3.5-5.2) Chloride Level 104mEq/L (97-108) Carbon Dioxide Level 21mmol/L (18-29) Blood Urea Nitrogen 14mg/dL (6-20) Creatinine 0.62mg/dL (0.57-1.00) Estimat Glomerular Filtration Rate 160mL/min (>59) Glucose Level 85mg/dL (60-99) Calcium Level 8.9mg/dL (8.5-10.1) Total Bilirubin 0.3mg/dL (0.0-1.2) Aspartate Amino Transf (AST/SGOT) 23U/L (0-50) Alanine Aminotransferase (ALT/SGPT) 17U/L (0-32) Alkaline Phosphatase 54U/L (25-150) Total Protein 7.1g/dL (6.4-8.4) Albumin 4.3g/dL (3.4-5.0) Hold [place] Top Tube Received (Received) HCG Beta Subunit 4450mIU/mL Hold Urine Received (Received) Test 05/20/16 14:19 Hemoglobin 10.7g/dL (12.0-15.6) Hematocrit 32.5% (35.0-46.0) Additional Information: Pelvic ultrasound this morning revealed: Ovaries: Thick walled mass again seen within the right adnexa adjacent to the right ovary with a central rounded sonolucency slightly increased in size from prior examination now measuring 2.7 x 2.0 cm compared to 1.3 x 0.9 cm on prior examination. No definite internal yolk sac or pole is seen. There is a trace amount of adjacent free fluid. Simple left ovarian cyst present measuring roughly 25 mm. IMPRESSION: 1. Mildly prominent complex endometrial stripe which may represent clot. No intrauterine is seen. 2. Right adnexal mass redemonstrated again suspicious for ectopic has slightly increased in size compared to prior examination and there is a trace amount of adjacent free fluid. 3. Simple left ovarian cyst. Assessment & Plan Assessment & Plan Assessment 1. R ectopic , possible rupture Plan: I consented her to a laparoscopic linear salpingostomy, with possible salpingectomy, salpingoophorectomy, possible mini-laparotomy, possible dilation and curettage. Risks include: bleeding, need for transfusion or iron, injury to other organs ( bowel, bladder, ureter), infection (cellulitis, pelvic infection, endometritis) , incisional hernia. She agreed and signed the consent form. She understands the risk of recurrent ectopic in the future, requiring medical attention to rule out ectopic if she suspects . It is possible to have a normal with a normal remaining tube on the contralateral side. 2U blood in bloodbank held She received RhoGam last week in the ER. Hospital Course: Post-Op Day # 1 Subjective: AVSS ambulatory OR explained No sx of endometriosis in the past pain controlled well JAIRO Postop General: No Complaints Gastrointestinal: Good Appetite Pain Management: PO Postop Activity: Ambulating Independently Surgical Exam Objective Vital Sign- Last 8 Hours Date Time Temp Pulse Resp B/P Pulse Ox O2 Delivery O2 Flow Rate FiO2 05/21/16 08:00 36.6 70 16 96/61 100 Room Air Intake and Output- Last 8 Hour 05/21/16 Cumulative From/Thru 07:00 05/20/16 07:30 - 05/21/16 05:12 Intake Total 1923 ml 4423 ml Output Total 780 ml 855 ml Balance 1143 ml 3568 ml Intake Oral 943 ml 943 ml IV Total 980 ml 3480 ml Output Urine Total 775 ml 850 ml Estimated Blood Loss 5 ml 5 ml General: Alert Lungs: Clear to Auscultation Abdomen: Benign, Soft Catheters: None Result Diagram: 05/21/16 0641 05/20/16 0804 [Image 1] Assessment & Plan Assessment & Plan Impression iron deficiency anemia secondary to acute blood loss R ectopic treated surgically Problems: Plan repeat H&H if stable discharge home today f/u in 2 wk will need serial Bhcg until levels approach zero Pathology: pending results Disposition: stable for discharge Follow-up Plan: see above Naproxen Sodium (Aleve) 220 Mg Capsule 220 MG PO (Reported) Saturnino Casillas MD Jun 02, 2016 00:43
== END 2016-05-21 17:48 | disposition home or self-care (01) ==
LOC: SED 07:25 → SAS 11:28 → UNDOADMIN 21:49 → MOC 21:49 → SAS 05-21 17:48
PROVIDERS: ADMIT Obstetrics & Gynecology; ATTEND Obstetrics & Gynecology
DX: O00.10 Tubal pregnancy without intrauterine pregnancy (principal); D62 Acute posthemorrhagic anemia; N83.292 Other ovarian cyst, left side; N80.3 Endometriosis of pelvic peritoneum; R51 Headache; R11.0 Nausea
CPT/HCPCS: 36415; 58673; 76830; 76856; 80053; 84702; 85014; 85018; 85025; 85610; 86870; 86922; 96360; 99285; J0131; J0690; J1170; J1200; J2270; J2790; J3010; J7030; J7120